=== PATIENT | male | born 1945 | race Caucasian/White ===

== ENCOUNTER 2020-04-06 16:29 | Emergency (ER) | payer MEDICARE ==
[~2020-04-06] VITALS: Ht 175.3 cm; Wt 77.1 kg
[~2020-04-06 16:29] MED LIST: ASPI81EC PO; CYCL10 PO; DEXA4 PO; DOCU100 PO; DOXY100 PO; FISH1000 PO; METPRE4 PO; OXYACE5T PO; TAMS.4ER PO
[2020-04-06] MEDS ORDERED: ATORVASTATIN TAB 10M (17:33)
[2020-04-06] MEDS ORDERED: Aspirin EC81 MG PO (17:34)
== END 2020-04-06 20:10 | disposition home or self-care (01) ==
LOC: ER 16:29
DX: S63.285A Dislocation of proximal interphalangeal joint of left ring finger, initial encounter (principal); M25.552 Pain in left hip; Z79.82 Long term (current) use of aspirin; Z79.899 Other long term (current) drug therapy; W11.XXXA Fall on and from ladder, initial encounter
CPT/HCPCS: 72100; 72220; 73130; 73502; 99284-25

== ENCOUNTER 2021-10-01 11:42 | Day surgery (SDC) | payer MEDICARE ==
[~2021-10-01] VITALS: Ht 175.3 cm; Wt 75.7 kg
[~2021-10-01 11:42] MED LIST changes: +ATORVASTATIN TAB 10M; +Aspirin EC81 MG PO
[2021-10-01] MEDS ORDERED: ZYRTEC10 M2 (12:13)
== END 2021-10-01 14:07 | disposition home or self-care (01) ==
LOC: ORSCSDS 11:42
PROVIDERS: Surgery
PROC: 0DJD8ZZ Inspection of Lower Intestinal Tract, Via Natural or Artificial Opening Endoscopic (ICD-10-PCS; principal; 2021-10-01 13:00)
PROC: 0DB68ZX Excision of Stomach, Via Natural or Artificial Opening Endoscopic, Diagnostic (ICD-10-PCS; principal; 2021-10-01 13:00)
PROC: 0DB48ZX Excision of Esophagogastric Junction, Via Natural or Artificial Opening Endoscopic, Diagnostic (ICD-10-PCS; principal; 2021-10-01 13:00)
DX: Z12.11 Encounter for screening for malignant neoplasm of colon (principal); R13.10 Dysphagia, unspecified; R05.8 Other specified cough; R93.89 Abnormal findings on diagnostic imaging of other specified body structures; K22.70 Barrett's esophagus without dysplasia; K57.30 Diverticulosis of large intestine without perforation or abscess without bleeding; J45.909 Unspecified asthma, uncomplicated; E78.2 Mixed hyperlipidemia; N18.31 Chronic kidney disease, stage 3a; Z79.899 Other long term (current) drug therapy; Z79.82 Long term (current) use of aspirin
CPT/HCPCS: 43239; G0121; 88305; 88342; J2704; J7120

== ENCOUNTER 2022-08-09 13:23 | Inpatient (IN) | payer MEDICARE ==
[~2022-08-09] VITALS: Ht 175.3 cm; Wt 77.5 kg
[~2022-08-09 13:23] MED LIST changes: -ATORVASTATIN TAB 10M; +LIPITOR80 MG PO; +ZYRTEC10 M2 PO
[2022-08-09 13:55] LABS: BASOPHILS ABSOLUTE AUTO 0.03 K/mm3 (0.00-0.23); BASOPHILS PERCENT AUTO 0 % (0-2); EOSINOPHILS ABSOLUTE AUTO 0.04 K/mm3 (0.00-0.68); EOSINOPHILS PERCENT AUTO 0 % (0-6); Hematocrit 43.9 % (37.0-53.0); Hemoglobin 14.4 g/dL (13.5-17.5); IMMATURE GRAN ABSOLUTE AUTO 0.02 K/mm3 (0.00-0.10); IMMATURE GRAN PERCENT AUTO 0 % (0-1); LYMPHOCYTES ABSOLUTE AUTO 1.56 K/mm3 (0.84-5.20); LYMPHOCYTES PERCENT AUTO 13 % (21-46); MONOCYTES ABSOLUTE AUTO 0.56 K/mm3 (0.16-1.47); MONOCYTES PERCENT AUTO 5 % (4-13); Mean Corpuscular HGB 29.6 pg (26.0-34.0); Mean Corpuscular HGB Conc 32.8 g/dL (31.5-36.5); Mean Corpuscular Volume 90 fL (80-100); Mean Platelet Volume 9.2 fL (9.1-12.4); NEUTROPHILS ABSOLUTE AUTO 9.92 K/mm3 (1.96-9.15); NEUTROPHILS PERCENT AUTO 82 % (41-73); Platelet Count 206 K/mm3 (150-400); RDW Coefficient Variation 12.2 % (11.7-14.2); RDW Standard Deviation 40.5 fL (35.1-46.3); Red Blood Cell Count 4.86 M/mm3 (4.30-5.90); White Blood Cell Count 12.13 K/mm3 (4.00-11.30)
[2022-08-09 14:05] LABS: Albumin, Blood 3.5 g/dL (3.4-5.0); Bilirubin, Total 0.5 mg/dL (0.1-1.0); Bun/Creatinine Ratio 15.3 (12.0-20.0); Creatinine, Blood 1.24 mg/dL (0.60-1.20); Globulin, Blood 3.6 g/dL (2.2-4.0); Potassium, Blood 4.2 mmol/L (3.5-5.5); Total Protein, Blood 7.1 g/dL (6.4-8.2)
[2022-08-09] MEDS ORDERED: TRAZ50 PO (15:34)
[2022-08-09] MEDS ORDERED: MONT10T PO (15:34)
[2022-08-09] MEDS ORDERED: OMEP20ER PO (15:35)
[2022-08-09 16:01] LABS: Anti-Xa UFH, PHA Monitoring <0.10 IU/mL; Prothrombin Time Results 10.5 Sec (9.7-11.5)
--- NOTE | 2022-08-09 17:39 | NUR ---
TRANSFER UPDATE PT ARRIVED TO PCU AT 1640 VIA GURNEY. PT ON RA UPON ARRIVAL. PT ABLE TO TRANSFER SELF TO HOSPITAL BED ON HIS OWN, TOLERATED WELL. NO REPORT OF CHEST PAIN/PRESSURE AT TIME OF ARRIVAL. NO REPORT OF SOB AT TIME OF ARRIVAL. PT SON PRESENT DURING TRANSFER. PT ORIENTED TO ROOM.
[2022-08-09 20:00] VITALS: BP 124/64
[2022-08-09 23:51] VITALS: BP 122/70
[2022-08-10] VITALS (13 sets, daily range): BP systolic 116–142; BP diastolic 54–97
[2022-08-10 05:01] LABS: BASOPHILS ABSOLUTE AUTO 0.04 K/mm3 (0.00-0.23); BASOPHILS PERCENT AUTO 1 % (0-2); EOSINOPHILS ABSOLUTE AUTO 0.21 K/mm3 (0.00-0.68); EOSINOPHILS PERCENT AUTO 3 % (0-6); Hematocrit 40.6 % (37.0-53.0); Hemoglobin 13.4 g/dL (13.5-17.5); IMMATURE GRAN ABSOLUTE AUTO 0.01 K/mm3 (0.00-0.10); IMMATURE GRAN PERCENT AUTO 0 % (0-1); LYMPHOCYTES ABSOLUTE AUTO 2.24 K/mm3 (0.84-5.20); LYMPHOCYTES PERCENT AUTO 26 % (21-46); MONOCYTES PERCENT AUTO 9 % (4-13); Mean Corpuscular HGB 29.4 pg (26.0-34.0); Mean Corpuscular Volume 89 fL (80-100); Mean Platelet Volume 9.2 fL (9.1-12.4); NEUTROPHILS ABSOLUTE AUTO 5.23 K/mm3 (1.96-9.15); NEUTROPHILS PERCENT AUTO 61 % (41-73); Platelet Count 178 K/mm3 (150-400); RDW Coefficient Variation 12.4 % (11.7-14.2); RDW Standard Deviation 40.2 fL (35.1-46.3); Red Blood Cell Count 4.56 M/mm3 (4.30-5.90); White Blood Cell Count 8.53 K/mm3 (4.00-11.30)
[2022-08-10 05:22] LABS: Bilirubin, Total 0.4 mg/dL (0.1-1.0); Bun/Creatinine Ratio 18.6 (12.0-20.0); Calcium, Blood 8.8 mg/dL (8.5-10.1); Creatinine, Blood 1.18 mg/dL (0.60-1.20); Globulin, Blood 3.1 g/dL (2.2-4.0); Potassium, Blood 4.2 mmol/L (3.5-5.5); Total Protein, Blood 6.1 g/dL (6.4-8.2)
--- NOTE | 2022-08-10 06:38 | NUR ---
SHIFT SUMMARY PT A&O X4, PLEASANT AND COOPERATIVE WITH CARE. VSS THROUHGOUT SHIFT. PT DENIES SOB, N/V, DIAPHORESIS, DIZZINESS OR LIGHTHEADNESS. PT REPORTS 2 SHORT EPISODES OF CHEST PAIN THIS SHIFT; ONE AROUND 0030 AND ONE AT 0400. PT RATES PAIN 4/10; STATES FEELS "DULL". DENIES RADIATION OF PAIN. CRITICAL TROPONINS, PROVIDER NOTIFIED W/NO NEW ORDERS. CARDIO CONSULT AND PLAN FOR POSSIBLE ANGIO THIS AM PER DAY SHIFT. PT HAS BEEN NPO SINCE 0000. PT UP TO USE RESTROOM INDEPENDENTLY, ONLY NEEDING ASSISTANCE FOR CORD MANAGEMENT. PT RESTED WELL THROUGHOUT THE NIGHT. WILL UPDATE ONCOMING RN.
--- NOTE | 2022-08-10 16:43 | NUR ---
TR BAND FULLY RECOVERED. TEGADERM IN PLACE. NO ACTIVE BLEEDING FROM SITE. FULL ROM OF FINGERS, DENIES ANY TINGLING OR NUMBNESS TO HAND. GOOD CAPREFILL. NO HEMATOMA NOTED. ARMBARD IN PLACE. PT IS GINNY FIXATED ON ARM BOARD, HE WAS WITNESSED BY THIS RN AND COPY CHIEF REMOVING AND REPOSITIONING ARMBOARD BEFORE TR BAND WAS FULLY RECOVERED, PT WAS THOROUGHLY EDUCATED ABOUT LEAVING ARM BOARD INPLACE.
--- NOTE | 2022-08-10 18:43 | NUR ---
PT WITH RT RADIAL ANGIO SITE THAT IS FULLY RECOVERED AND ARM BOARDED. NO ACTIVE BLEEDING FROM SITE. PT DENIES ANY CP OR SOB. VSS. PT RESTING WELL IN BED, HE IS UP IND TO BATHROOM. PT CAN BE FORGETFUL OF HIS LIMITATIONS WITH HIS ANGIO SITE AND DOES NEED FREQUENT REMINDING. A/O X3. FAMILY AT BEDSIDE VISITING WITH PT. USES CALL LIGHT APPROPRIATELY. PT HAS COMPLETED POST ANGIO BOLUS
[2022-08-11] VITALS: BP 126/69
[2022-08-11 04:16] VITALS: BP 134/67
--- NOTE | 2022-08-11 06:20 | NUR ---
SHIFT SUMMARY PT REMAINS A&O X4. NO ACUTE EVENTS OVERNIGHT. VSS. PT DENIES CP OR PRESSURE, SOB. DENIES N/V. PT RESTED WELL. R RADIAL SITE REMAINS WNL AND UNCHANGED FROM PREVIOUS SHIFT. TEGADERM DRESSING IN PLACE AND ARMBOARD IN PLACE. PT EDUCATED ON ND, NEW MEDICATIONS, AND CARE OF ANGIO SITE WELL. WILL UPDATE ONCOMING RN.
[2022-08-11 07:18] VITALS: BP 141/71
--- NOTE | 2022-08-11 09:28 | NUR ---
CARE ASSUMPTION This RN assumed care at 0700. vital signs stable. patient is alert and oriented x4, date/palce/sitation/person/self. tele sinus. patient reports no pain, chest pain/pressure, or shortness of breath. see shift assessment for further information. patient educated on right radial site care and medications patient got this am. patient is indepdent in room in performing ADLs. patient calss if needing assistance. plan of care is up to date. call light gul[facility]an reach
[2022-08-11] MEDS ORDERED: CLOP75 PO (12:28)
[2022-08-11] MEDS ORDERED: METO25 PO (12:28)
--- NOTE | 2022-08-11 13:00 | NUR ---
DISCHARGE This RN went over discharge education with patient and patient . patient and patient verbalized understanding of education. patient medications faxed to [facility]. patient left with all belongings and in no distess.
== END 2022-08-11 13:01 | disposition home or self-care (01) | DRG 247 ==
LOC: ER 13:23 → PCU 15:36
PROVIDERS: Emergency Medicine; ADMIT Internal Medicine
PROC: 027034Z Dilation of Coronary Artery, One Artery with Drug-eluting Intraluminal Device, Percutaneous Approach (ICD-10-PCS; principal; 2022-08-10)
PROC: B2111ZZ Fluoroscopy of Multiple Coronary Arteries using Low Osmolar Contrast (ICD-10-PCS; 2022-08-10)
PROC: 4A023N7 Measurement of Cardiac Sampling and Pressure, Left Heart, Percutaneous Approach (ICD-10-PCS; 2022-08-10)
DX: I21.4 Non-ST elevation (NSTEMI) myocardial infarction (principal); I25.110 Atherosclerotic heart disease of native coronary artery with unstable angina pectoris; E78.5 Hyperlipidemia, unspecified; N40.0 Benign prostatic hyperplasia without lower urinary tract symptoms; I12.9 Hypertensive chronic kidney disease with stage 1 through stage 4 chronic kidney disease, or unspecified chronic kidney disease; E88.81 Metabolic syndrome and other insulin resistance; G47.00 Insomnia, unspecified; N18.30 Chronic kidney disease, stage 3 unspecified; Z98.1 Arthrodesis status; Z88.0 Allergy status to penicillin; Z79.82 Long term (current) use of aspirin; Z79.899 Other long term (current) drug therapy
CPT/HCPCS: 36415; 71045; 76937; 80053; 82947; 83690; 84484; 85025; 85347; 85520; 85610; 85730; 93005; 93010; 93454; 96365; 99152; 99153; 99285-25; A9270; C1769; C1874; C1887; C1894; C9600; J1644; J2250; J3010; J3246; J7030; J7050; Q9967

== ENCOUNTER 2022-08-25 11:38 | Emergency (ER) | payer MEDICARE ==
[~2022-08-25] VITALS: Ht 175.3 cm; Wt 74.8 kg
[~2022-08-25 11:38] MED LIST changes: +CLOP75 PO; +METO25 PO; +MONT10T PO; +OMEP20ER PO; +TRAZ50 PO
[2022-08-25 12:14] LABS: BASOPHILS ABSOLUTE AUTO 0.04 K/mm3 (0.00-0.23); BASOPHILS PERCENT AUTO 1 % (0-2); EOSINOPHILS ABSOLUTE AUTO 0.48 K/mm3 (0.00-0.68); EOSINOPHILS PERCENT AUTO 7 % (0-6); Hematocrit 44.4 % (37.0-53.0); Hemoglobin 14.5 g/dL (13.5-17.5); IMMATURE GRAN ABSOLUTE AUTO 0.02 K/mm3 (0.00-0.10); IMMATURE GRAN PERCENT AUTO 0 % (0-1); LYMPHOCYTES ABSOLUTE AUTO 2.28 K/mm3 (0.84-5.20); LYMPHOCYTES PERCENT AUTO 31 % (21-46); MONOCYTES ABSOLUTE AUTO 0.52 K/mm3 (0.16-1.47); MONOCYTES PERCENT AUTO 7 % (4-13); Mean Corpuscular HGB 29.7 pg (26.0-34.0); Mean Corpuscular HGB Conc 32.7 g/dL (31.5-36.5); Mean Corpuscular Volume 91 fL (80-100); Mean Platelet Volume 9.2 fL (9.1-12.4); NEUTROPHILS ABSOLUTE AUTO 3.92 K/mm3 (1.96-9.15); NEUTROPHILS PERCENT AUTO 54 % (41-73); Platelet Count 220 K/mm3 (150-400); RDW Standard Deviation 40.3 fL (35.1-46.3); Red Blood Cell Count 4.88 M/mm3 (4.30-5.90); White Blood Cell Count 7.26 K/mm3 (4.00-11.30)
[2022-08-25 12:35] LABS: Albumin, Blood 3.4 g/dL (3.4-5.0); Bilirubin, Total 0.4 mg/dL (0.1-1.0); Bun/Creatinine Ratio 11.3 (12.0-20.0); Calcium, Blood 8.8 mg/dL (8.5-10.1); Creatinine, Blood 1.24 mg/dL (0.60-1.20); Globulin, Blood 3.3 g/dL (2.2-4.0); Potassium, Blood 4.3 mmol/L (3.5-5.5); Total Protein, Blood 6.7 g/dL (6.4-8.2)
[2022-08-25 14:00] VITALS: BP 141/53
== END 2022-08-25 14:21 | disposition home or self-care (01) ==
LOC: ER 11:38
PROVIDERS: Physician Assistant
DX: R07.89 Other chest pain (principal); I12.9 Hypertensive chronic kidney disease with stage 1 through stage 4 chronic kidney disease, or unspecified chronic kidney disease; N18.30 Chronic kidney disease, stage 3 unspecified; Z79.82 Long term (current) use of aspirin; Z79.02 Long term (current) use of antithrombotics/antiplatelets; Z79.899 Other long term (current) drug therapy
CPT/HCPCS: 71046; 80053; 83690; 84484; 85025; 93005; 93010

== ENCOUNTER 2022-09-15 20:22 | Emergency (ER) | payer MEDICARE ==
[~2022-09-15] VITALS: Ht 175.3 cm; Wt 77.1 kg
[2022-09-15 21:22] LABS: BASOPHILS ABSOLUTE AUTO 0.03 K/mm3 (0.00-0.23); BASOPHILS PERCENT AUTO 1 % (0-2); EOSINOPHILS PERCENT AUTO 5 % (0-6); Hematocrit 43.4 % (37.0-53.0); Hemoglobin 14.3 g/dL (13.5-17.5); IMMATURE GRAN ABSOLUTE AUTO 0.01 K/mm3 (0.00-0.10); IMMATURE GRAN PERCENT AUTO 0 % (0-1); LYMPHOCYTES ABSOLUTE AUTO 2.19 K/mm3 (0.84-5.20); LYMPHOCYTES PERCENT AUTO 34 % (21-46); MONOCYTES ABSOLUTE AUTO 0.61 K/mm3 (0.16-1.47); MONOCYTES PERCENT AUTO 9 % (4-13); Mean Corpuscular HGB 29.8 pg (26.0-34.0); Mean Corpuscular HGB Conc 32.9 g/dL (31.5-36.5); Mean Corpuscular Volume 90 fL (80-100); Mean Platelet Volume 9.5 fL (9.1-12.4); NEUTROPHILS ABSOLUTE AUTO 3.35 K/mm3 (1.96-9.15); NEUTROPHILS PERCENT AUTO 52 % (41-73); Platelet Count 221 K/mm3 (150-400); RDW Coefficient Variation 12.3 % (11.7-14.2); RDW Standard Deviation 41.2 fL (35.1-46.3); White Blood Cell Count 6.49 K/mm3 (4.00-11.30)
[2022-09-15 21:34] LABS: Albumin, Blood 3.5 g/dL (3.4-5.0); Bilirubin, Total 0.3 mg/dL (0.1-1.0); Bun/Creatinine Ratio 11.6 (12.0-20.0); Calcium, Blood 8.6 mg/dL (8.5-10.1); Creatinine, Blood 1.55 mg/dL (0.60-1.20); Globulin, Blood 3.4 g/dL (2.2-4.0); Potassium, Blood 4.1 mmol/L (3.5-5.5); Total Protein, Blood 6.9 g/dL (6.4-8.2)
[2022-09-15] MEDS ORDERED: ZYRTEC10 M2 PO (21:40)
[2022-09-15 22:43] LABS: Magnesium, Blood 2.1 mg/dL (1.6-2.4); Thyroid Stimulating Hormone 6.19 uIU/mL (0.360-4.800)
[2022-09-16 00:30] VITALS: BP 123/61
== END 2022-09-16 00:51 | disposition home or self-care (01) ==
LOC: ER 20:22
PROVIDERS: Physician Assistant
DX: R07.9 Chest pain, unspecified (principal); R00.2 Palpitations; R00.1 Bradycardia, unspecified; I25.2 Old myocardial infarction; N40.0 Benign prostatic hyperplasia without lower urinary tract symptoms; E78.5 Hyperlipidemia, unspecified; I12.9 Hypertensive chronic kidney disease with stage 1 through stage 4 chronic kidney disease, or unspecified chronic kidney disease; N18.30 Chronic kidney disease, stage 3 unspecified; Z95.5 Presence of coronary angioplasty implant and graft; Z88.1 Allergy status to other antibiotic agents; Z79.899 Other long term (current) drug therapy; Z79.82 Long term (current) use of aspirin
CPT/HCPCS: 71046; 80053; 83735; 84439; 84443; 84484; 85025; 96360; 99285-25; J7030

== ENCOUNTER 2024-10-18 07:42 | Day surgery (SDC) | payer MEDICARE ==
[~2024-10-18] VITALS: Ht 160 cm; Wt 69.4 kg
[2024-10-18] MEDS ORDERED: PANT40 (08:21)
[2024-10-18 10:02] VITALS: BP 135/86
== END 2024-10-18 10:11 | disposition home or self-care (01) ==
LOC: ORSCSDS 07:42
PROVIDERS: Surgery
PROC: 0DB68ZX Excision of Stomach, Via Natural or Artificial Opening Endoscopic, Diagnostic (ICD-10-PCS; principal; 2024-10-18 09:15)
PROC: 0DB48ZX Excision of Esophagogastric Junction, Via Natural or Artificial Opening Endoscopic, Diagnostic (ICD-10-PCS; principal; 2024-10-18 09:15)
DX: K22.70 Barrett's esophagus without dysplasia (principal); K29.70 Gastritis, unspecified, without bleeding; I25.10 Atherosclerotic heart disease of native coronary artery without angina pectoris; N18.31 Chronic kidney disease, stage 3a; J45.909 Unspecified asthma, uncomplicated; E78.2 Mixed hyperlipidemia; Z79.82 Long term (current) use of aspirin; Z79.02 Long term (current) use of antithrombotics/antiplatelets; Z79.899 Other long term (current) drug therapy
CPT/HCPCS: 88305; J2704; J7120